=== PATIENT | male | born 1945 | race Caucasian/White ===

== ENCOUNTER → 2016-12-16 | Outpatient (CLI) | payer OTHER ==
--- NOTE | 2016-12-16 13:46 | REP ---
Clinical: Pneumoconiosis. Asbestosis. Technique: PA and lateral. Comparison: 11/22/2015. Findings: Mediastinum and cardiac silhouette are stable with mild cardiomegaly again suggested as well as evidence for prior sternotomy and CABG. The lung horn demonstrate diffuse chronic interstitial changes and increased markings are identified in the left mid to lower lung zone. Acute on chronic atelectasis cannot be excluded. No obvious effusion. No pneumothorax. Skeletal structures intact. Impression: Chronic changes as described above Superimposed increased left lower lobe markings may reflect acute on chronic atelectasis. Signed by Derian Terrazas MD 12/16/2016 01:37 P
== END ==
LOC: M SMT 13:09
PROVIDERS: ATTEND Internal Medicine Pulmonary Disease
DX: J61 Pneumoconiosis due to asbestos and other mineral fibers (principal)

== ENCOUNTER → 2017-12-10 | Outpatient (CLI) | payer OTHER | LOC: M SMT 10:54 | DX: J61 Pneumoconiosis due to asbestos and other mineral fibers (principal) | CPT/HCPCS: 71046 ==

== ENCOUNTER → 2018-12-21 | Outpatient (CLI) | payer OTHER ==
--- NOTE | 2018-12-22 03:11 | REP ---
Clinical: Pneumoconiosis. Asbestosis . Comparison: 12/10/2017 . Technique: PA and lateral. Findings: The mediastinum and cardiac silhouette are stable. Evidence of prior sternotomy and CABG. The lung horn demonstrate chronic stable changes without acute consolidation, effusion, or pneumothorax. The skeletal structures are intact and normal. Impression: 1. No acute cardiopulmonary process. Electronically Signed by Derian Terrazas MD 12/22/2018 03:03 A
== END ==
LOC: M SMT 14:25
PROVIDERS: ATTEND Internal Medicine Pulmonary Disease
DX: J61 Pneumoconiosis due to asbestos and other mineral fibers (principal)

== ENCOUNTER → 2019-12-27 | Outpatient (CLI) | payer OTHER ==
--- NOTE | 2020-01-07 11:49 | REPPI ---
CHEST X-RAY CLINICAL: Asbestosis. FINDINGS: Evidence for mild cardiomegaly with prior sternotomy again noted. The lung horn demonstrate chronic interstitial changes. Lateral views suggest chronic left basilar changes. No obvious acute consolidation, effusion, or pneumothorax. Skeletal structures are intact. IMPRESSION: Relatively chronic appearing changes. If the patient remains symptomatic, consider chest CT for further investigation given the patients high risk factors. MTDD
== END ==
LOC: M PLAIMG 11:32
PROVIDERS: ATTEND Internal Medicine Pulmonary Disease
DX: J61 Pneumoconiosis due to asbestos and other mineral fibers (principal)

== ENCOUNTER → 2021-01-31 | Outpatient (CLI) | payer OTHER ==
--- NOTE | 2021-01-31 11:03 | REP ---
INDICATION: PNEUMOCONIOSIS DUE TO ASBESTOS AND OTHER MINERAL FIBERS. COMPARISON: Multiple the latest 12/27/2019 TECHNIQUE: PA and lateral FINDINGS: The cardiomediastinal silhouette is stable. Note is again made of previous median sternotomy and mild cardiomegaly status quo. The lung horn are unchanged. Scattered reticulonodular densities and increased interstitial markings are noted status quo. No acute patchy parenchymal opacities or pleural effusions have developed. The pleural angles are again seen to be sharp. There is no significant change in the osseous structures. IMPRESSION: There is no acute cardiopulmonary disease. Stable appearing chronic changes as described above. <Electronically signed by Cruzito Isabel > 01/31/21 [id number]
== END ==
LOC: M PLAIMG 10:21
PROVIDERS: ATTEND Internal Medicine Pulmonary Disease
DX: J61 Pneumoconiosis due to asbestos and other mineral fibers (principal); I51.7 Cardiomegaly

== ENCOUNTER → 2022-02-13 | Outpatient (CLI) | payer OTHER | LOC: M PLAIMG 14:31 | PROVIDERS: ATTEND Internal Medicine Pulmonary Disease | DX: J61 Pneumoconiosis due to asbestos and other mineral fibers (principal) ==

== ENCOUNTER → 2022-11-27 | Outpatient (CLI) | payer OTHER | LOC: M PLARAD 14:54 | PROVIDERS: ATTEND Internal Medicine Pulmonary Disease | DX: J61 Pneumoconiosis due to asbestos and other mineral fibers (principal) ==

== ENCOUNTER → 2023-12-22 | Outpatient (CLI) | payer OTHER | LOC: M PLAIMG 10:48 | PROVIDERS: ATTEND Internal Medicine Pulmonary Disease | DX: J61 Pneumoconiosis due to asbestos and other mineral fibers (principal) ==

== ENCOUNTER → 2024-12-20 | Outpatient (CLI) | payer OTHER, MEDICARE | LOC: M PLAIMG 12:54 | PROVIDERS: ATTEND Internal Medicine Pulmonary Disease | DX: J61 Pneumoconiosis due to asbestos and other mineral fibers (principal) ==